=== PATIENT | female | born 1990 | race Two or more races ===

== ENCOUNTER 2020-05-30 15:53 | Outpatient (REF) | payer OTHER, SELFPAY | END 2020-05-30 15:54 | disposition home or self-care (01) | LOC: HO.LAB 15:53 | PROVIDERS: Visit Provider Internal Medicine | DX: Z20.822 Contact with and (suspected) exposure to COVID-19 (principal) | CPT/HCPCS: 36415; C9803; U0003; U0005 ==

== ENCOUNTER 2024-03-18 18:12 | Emergency (ER) | payer OTHER, SELFPAY ==
[2024-03-18 18:18] VITALS: BP 112/44; PULSE 84; RESP 14; TEMP 36.7; O2SAT 98; BMI 24.2
--- NOTE | 2024-03-18 19:49 | ED_ITS ---
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 Patient admits to irrigating eye immediately. Patient is up-to-date on her vaccinations. Unknown medical history patient. Denies other complaints. Related Data Allergies Allergy/AdvReac Type Severity Reaction Status Date / Time No Known Allergies Allergy Verified 03/18/24 18:25 Review of Systems 2 Review of Systems: Yes all other systems are reviewed and are negative Constitutional: Constitutional: Reports as per [facility] Past Medical History Attestation statement: The following information was validated with the patient. Source: old records reviewed Social History Social History Advance Directives: No Advance Directives Information Provided: No Physical Exam 2 Vital Signs: Vital Signs: Last Vital Signs Temp 98.4 F 03/18/24 20:03 Pulse 76 03/18/24 20:03 Resp 16 03/18/24 20:03 BP 118/74 03/18/24 20:03 Pulse Ox 100 03/18/24 20:03 O2 Del Method Room Air 03/18/24 20:03 BMI result Body Mass Index 24.2 Const: General: cooperative, healthy appearing and no acute distress O rientation/consciousness: patient oriented x3 Limitations: no limitations HEENT: Head: Yes normal to inspection and Yes atraumatic Ears: hearing grossly normal bilaterally General nose exam: Normal external nose present Face and sinus: Yes normal facial exam Eyes: General: appearance normal, both eyes and all related structures A lignment and Position: alignment normal Periorbital: periorbital findings normal Eyelids: Yes eyelids normal Conjunctivae: conjunctivae normal P upils: Equal, round and reactive pupils present EOM: EOMs intact bilaterally Neck: Neck: Yes normal visual inspection and Yes no meningeal signs Resp: Effort & Inspection: normal respiratory effort and no respiratory distress Cardio: Rate: regular rate Skin: Rashes: no rashes Wounds: no wounds Neuro: General: patient oriented x3, tone normal and no meningeal signs C ranial nerves: Yes CN's II-XII intact bilaterally and Yes Equal, round and reactive pupils present Gait exam (Neuro): Normal gait present Extrem: General: Yes normal to inspection Course Course Course Narrative: - labs reassuring. Urine negative > discussed with patient post exposure risk & side effects/benefits of PEP. Patient would like to be prescribed/initiate PEP at this time until she can obtain further clarification around drawing patient's labs. - recommended work connection/ID follow-up Results discussed with patient including worrisome signs and symptoms and strict return precautions, and when to return to the emergency department. They verbalized understanding and feel safe for discharge at this time. 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 patient is up-to-date on vaccinations. Will draw labs/titers. Offered PEP kit Patient is speaking with nursing equipment records supervisor about obtaining labs/titers from patient to avoid PEP if possible Please refer to course for remaining clinical decision making, interpretation of labs/imaging results, and discussions with consultants and/or family members. Differential Diagnosis Differential Diagnoses: The differential diagnosis associated with the presentation includes As above Lab Data [facility] Lab Attestation statement: I reviewed the patient's lab results. 03/18/24 19:46 03/18/24 19:46 Labs: Lab Results 03/18/24 Range/Units 19:46 WBC 7.4 (4.8-10.8) X10*3/uL RBC 3.90 L (4.20-5.50) X10*6/uL Hgb 11.9 L (12.0-16.0) g/dl Hct 33.9 L (37.0-47.0) % MCV 86.9 (80.0-98.0) fL MCH 30.5 (27.0-33.0) pg MCHC 35.1 H (31.0-35.0) g/dl RDW 12.0 (11.0-16.0) % Plt Count 248 (160-400) X10*3/uL MPV 10.5 (9.4-12.3) fL Immature Gran % (Auto) 0.3 (0.0-0.4) % Neut % (Auto) 54.6 (45-73) % Lymph % (Auto) 37.2 (20-40) % [place] % (Auto) 6.1 (2-11) % Eos % (Auto) 1.5 (0-4) % Baso % (Auto) 0.3 (0-2) % Lymph # (Auto) 2.8 (1.2-4.9) X10*3/uL [place] # (Auto) 0.5 (0.1-1.2) X10*3/uL Eos # (Auto) 0.1 (0.0-0.4) X10*3/uL Baso # (Auto) 0.0 (0.0-0.2) X10*3/uL Abs Immat Gran (auto) 0.02 (0.00-0.03) X10*3/uL Absolute Neuts (auto) 4.0 (2.0-8.3) x10*3/uL Absolute Nucleated RBC 0.000 (0.0-0.012) X10*3/uL Nucleated RBC % (auto) 0.0 (0.0-0.2) /100WBC Sodium 139 (135-145) mmol/L Potassium 3.4 (3.3-5.1) mmol/L Chloride 104 (96-108) mmol/L Carbon Dioxide 26 (22-29) mmol/L Anion Gap 12 (12-20) BUN 13 (9-16) mg/dL Creatinine 0.59 (0.5-1.4) mg/dL Estim Creat Clear Calc 100.1 Estimated GFR > 60 Random Glucose 96 (60-115) mg/dL Calcium 9.6 (8.4-10.2) mg/dL Total Bilirubin 0.3 (0.0-1.0) mg/dL Direct Bilirubin 0.1 (0.0-0.5) mg/dL AST 22 (5-31) U/L ALT 16 (0-31) U/L Alkaline Phosphatase 52 (39-117) U/L Total Protein 7.3 (6.5-8.0) g/dL Albumin 4.6 (3.5-5.0) g/dL Urine Test NEGATIVE (NEGATIVE) External Record Review External record reviewed: Inpatient record, Office record, Outpatient record, Prior outpatient labs, Prior outpatient radiology, Primary care record and Outside ED record Tests considered The following testing was considered but not selected: As above Prescription Management I considered prescription management with: Antiviral and Antibiotic Social Determinants Patient?s care significantly limited by Social Determinants of Health including: Other Social Determinant of Health Discharge Plan Discharge Clinical Impression: Hx of exposure to hazardous bodily fluids Patient Disposition: Still a Patient Instructions: Body Substance Exposure (ED) Referrals: [facility] [Outside] Hansa Jacobson MD [Primary Care Provider] - Print Language: Luxembourgish
[2024-03-18 19:53] LABS: MANUAL DIFF FLAG NO
[2024-03-18 19:54] LABS: Basophils Percent Auto 0.3 % (0-2); Eosinophils Absolute Auto 0.1 X10*3/uL (0.0-0.4); Eosinophils Percent Auto 1.5 % (0-4); Hematocrit 33.9 % (37.0-47.0); Hemoglobin 11.9 g/dl (12.0-16.0); Imm Gran Abs Auto 0.02 X10*3/uL (0.00-0.03); Imm Gran Pct Auto 0.3 % (0.0-0.4); Lymphocytes Absolute Auto 2.8 X10*3/uL (1.2-4.9); Lymphocytes Percent Auto 37.2 % (20-40); Mean Corpuscular HGB Conc 35.1 g/dl (31.0-35.0); Mean Corpuscular Hemoglobin 30.5 pg (27.0-33.0); Mean Corpuscular Volume 86.9 fL (80.0-98.0); Mean Platelet Volume 10.5 fL (9.4-12.3); Monocytes Absolute Auto 0.5 X10*3/uL (0.1-1.2); Monocytes Percent Auto 6.1 % (2-11); Neutrophils Percent Auto 54.6 % (45-73); Platelet Count 248 X10*3/uL (160-400); White Blood Count 7.4 X10*3/uL (4.8-10.8)
[2024-03-18 19:58] LABS: UPreg QC Valid YES; Urine Pregnancy NEGATIVE (NEGATIVE)
[2024-03-18 20:03] VITALS: BP 118/74; PULSE 76; RESP 16; TEMP 36.9; O2SAT 100
[2024-03-18 20:16] LABS: Alanine Aminotransferase 16 U/L (0-31); Albumin Level 4.6 g/dL (3.5-5.0); Alkaline Phosphatase 52 U/L (39-117); Anion Gap 12 (12-20); Aspartate Amino Transferase 22 U/L (5-31); Bilirubin Direct 0.1 mg/dL (0.0-0.5); Bilirubin Total 0.3 mg/dL (0.0-1.0); Blood Urea Nitrogen 13 mg/dL (9-16); Calcium 9.6 mg/dL (8.4-10.2); Carbon Dioxide 26 mmol/L (22-29); Chloride 104 mmol/L (96-108); Creatinine Clr Calc Pharmacy 100.1; Estimated Glomerular Filt Rate > 60; Glucose Random 96 mg/dL (60-115); Potassium 3.4 mmol/L (3.3-5.1); Sodium 139 mmol/L (135-145); Total Protein 7.3 g/dL (6.5-8.0)
[2024-03-18] MEDS: Post Exposure Medication Kit 1 KIT PO (20:42)
[2024-03-18 20:47] VITALS: BP 118/74; PULSE 76; RESP 16; TEMP 36.9; O2SAT 100
[2024-03-19 03:41] LABS: HBS Num1 415.66 mIU/mL (0-7.99); HBc Num1 0.11 S/CO (0.00-0.79); HIV AB/AG Nonreactive (Nonreactive); HIV Num 1 0.18 S/CO (0.00-0.99); Hepatitis B Core Antibody Nonreactive (Nonreactive); Hepatitis B Surface Antigen Negative (Negative); ~HepC Num1 0.11 S/CO (0.00-0.79); ~Hepatitis B Surface Antibody REACTIVE (Nonreactive); ~Hepatitis C Antibody Nonreactive (Nonreactive)
== END 2024-03-18 20:48 | disposition home or self-care (01) ==
PROVIDERS: Physician Assistant; Emergency Provider Internal Medicine; PCP Internal Medicine
DX: Z04.2 Encounter for examination and observation following work accident (principal); Z77.21 Contact with and (suspected) exposure to potentially hazardous body fluids
CPT/HCPCS: 36415; 80048; 80076; 81025; 85025; 86704; 86706; 86803; 87340; 87389; 99283

== ENCOUNTER → 2024-03-22 09:49 | Outpatient (BNVA) | payer OTHER, SELFPAY | PROVIDERS: PCP Internal Medicine; Visit Provider Physician Assistant Medical | DX: Z13.89 Encounter for screening for other disorder (principal) | CPT/HCPCS: 99202 ==

== ENCOUNTER 2024-03-23 13:27 | Outpatient (AMB) | payer OTHER, SELFPAY ==
--- NOTE | 2024-03-23 14:12 | MHC.OFFVIS ---
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 She had no protective glasses on and received splash of bloody urine to eyes. She is Hepatitis C negative and HIV negative on 03/20. She said she believes source was tested and was negative also. She has reflux and nausea and doesnt want to continue HAART prophylaxis due to low risk. [facility] Medical History (Updated 03/25/24 @ 00:04 by Myrtle Mayer MD) Exposure to blood Review of Systems Const All systems reviewed & are unremarkable except as noted in HPI and below GI Reports dyspepsia and Reports nausea Physical Exam Vital Signs: Last Vital Signs Pulse 83 03/23/24 14:26 Pulse Ox 98 03/23/24 14:26 Oxygen Delivery Method Room Air 03/23/24 14:26 BMI result Body Mass Index 25.4 Const General: cooperative Assessment & Plan Assessment & Plan (1) Exposure to blood: Comment: Low risk and counseled. She doesnt want any further HIV preventive medication at this time (Truvada and Raltegravir). Code(s): Z77.21 - Contact with and (suspected) exposure to potentially hazardous body fluids Category: Medical Plan: No further treatment or testing at this time except patient wishes to be tested again at upcoming physical. Coding Level of Care Code New Pt Level 3 (65398) Diagnoses Exposure to blood Z77.21
[2024-03-23 14:26] VITALS: PULSE 83; O2SAT 98; BMI 25.4
== END 2024-03-23 15:17 | disposition home or self-care (01) ==
PROVIDERS: PCP Internal Medicine; Visit Provider Internal Medicine
DX: Z77.21 Contact with and (suspected) exposure to potentially hazardous body fluids (principal)
CPT/HCPCS: 99203

== ENCOUNTER → 2024-03-23 13:27 | Outpatient (BNVA) | payer OTHER, SELFPAY | PROVIDERS: PCP Internal Medicine; Visit Provider Internal Medicine | DX: Z77.21 Contact with and (suspected) exposure to potentially hazardous body fluids (principal) | CPT/HCPCS: 99202 ==

== ENCOUNTER → 2024-11-22 14:58 | Outpatient (REF) | payer OTHER, SELFPAY ==
--- NOTE | 2024-11-22 15:03 | ECG_ITS ---
Test Reason : qt check Blood Pressure : */* mmHG Vent. Rate : 78 BPM Atrial Rate : 78 BPM P-R Int : 176 ms QRS Dur : 94 ms QT Int : 388 ms P-R-T Axes : 62 26 43 degrees QTcB Int : 442 ms Normal sinus rhythm Normal ECG No previous ECGs available Referred By: Michi Haley Electronically Signed By: LIAT STEINBERG MD
--- OUTSIDE RECORDS SUMMARY | 2024-11-22 15:51 | XMS_ITS | Encounter Summary ---
Author Organization [facility] Address [address] [place] [address] Care Team Providers Care Clam Grower Name Role Phone Danelle Travis MD Primary Care Provider [phone] Reason for Visit * Reason Onset Date Comments Print last physical/vaccines 10/24/2024 Encounter Details Date Type Department Care Team (Late st Contact Info) Description 10/24/2024 Telephone Internal Medicine - [place] [address] [place] [phone] Danelle Travis MD [address] [place] [phone] Print last physical/vaccines Social History Tobacco Use Types Packs/Day Years Used Date Smoking Tobacco: Never Smokeless Tobacco: Never Alcohol Use Standard Drinks/Week Comments Never 0 (1 standard drink = 0.6 oz pur e alcohol) Comments No Sex and Gender Information Value Date Recorded Sex Assigned at Not on file Legal Sex Female 2:35 PM EST Gender Identity Not on file Sexual Orientation Not on file documented as of this encounter Progress Notes * Pooja Perdue MA - 11/08/2024 12:12 PM EDT Pt called questioning Tdap she stated she had it done in May but ist showing it documented? Pls dvise? * Anupama Pascal MA - 10/26/2024 10:02 AM EDT Patient aware. * MANGO Ardon - 10/26/2024 7:52 AM EDT TB blood test ordered. I do not believe we have meningococcal vaccines and I looked at their imm history and did not see it's been done. * Fatuma Vargas MA - 10/25/2024 2:15 PM EDT Patient needs TB test for form. Form is also requesting Meningococcal A and B vaccine, required for school. * Loren Mcarthur - 10/24/2024 2:40 PM EDT Patient now requesting a letter stating she had a complete physical . Note date of physical on letter Contact her once letter is completed Also if our office does PPD if so please schedule * Keara Dumont - 10/24/2024 12:48 PM EDT Patient called and requested a copy of her last physical exam and all of her immunization records and need a TB test done as well. Please advise Cb# [phone] documented in this encounter Plan of Treatment Upcoming Encounters Date Type Department Care Team (Late st Contact Info) Description 12/28/2024 8:20 AM EDT Procedure visit [facility] [address] [place] [phone] Cata Michelle MD [address] [place] [phone] 02/01/2025 11:30 AM EDT Office Visit [facility] [address] [place] [phone] Araceli Pacheco PA [address] [place] [address] documented as of this encounter Visit Diagnoses Diagnosis Screening-pulmonary TB- Primary Screening examination for pulmonary tuberculosis documented in this encounter Care Teams Clam Grower Relationship Specialty Start Date End Date Danelle Travis MD [address] [place] [phone] PCP - General Internal Medicine 02/26/24 documented as of this encounter
--- OUTSIDE RECORDS SUMMARY | 2024-11-22 15:51 | XMS_ITS | Clinical Summary ---
Author Organization [facility] Address [address] [place] [address] Care Team Providers Care Teacher Private Name Role Phone Danelle Travis MD Primary Care Provider [phone] Allergies No known active allergies Medications Medication Sig Dispensed Refills Start Date End Date Status butalbital-acetamino phen-caffeine 50-325-40 MG per tablet TAKE 1 TABLET BY MOUTH EVERY 4 HOURS NEEDED FOR PAIN FOR UP TO 28 DAYS. 20 TABS/30 DAYS 0 04/29/2023 Active vitamin D3 (CHOLECALCIFEROL) 125 MCG (5000 UT) capsule Take 1 capsule (5,000 Units total) by mouth daily. 0 03/31/2023 Active escitalopram (LEXAPRO) tablet 10 mg TAKE 1 AND 1/2 TABLETS DAILY BY MOUTH 0 04/29/2023 Active gabapentin (NEURONTIN) 100 MG capsule TAKE 1 CAPSULE BY MOUTH AT BEDTIME FOR FIRST WEEK, THEN 2 CAPSULES AT BEDTIME 0 04/29/2023 Active galcanezumab-gnlm (Emgality) 120 MG/ML injection Inject 2 mL (240 mg total) under the skin every 28 days. 1 mL 3 08/03/2023 Active Ubrogepant (Ubrelvy) 100 MG TABS Take 100 mg by mouth 2 (two) times a day as needed. Take one tablet as needed for headaches, may repeat in 2 hours, do not exceed more than 2 per day 30 tablet 3 10/30/2023 Active Social History Tobacco Use Types Packs/Day Years Used Date Smoking Tobacco: Never Smokeless Tobacco: Never Tobacco Cessation:Counseling Given: Not Answered Alcohol Use Standard Drinks/Week Comments Never 0 (1 standard drink = 0.6 oz pur e alcohol) Sex and Gender Information Value Date Recorded Sex Assigned at Female 04/01/2023 11:49 AM EST Gender Identity Not on file Sexual Orientation Not on file Job Start Date Occupation Industry Not on file Not on file Not on file Last Filed Vital Signs Vital Sign Reading Time Taken Comments Blood Pressure 101/67 10/30/2023 1:57 PM EDT Pulse 92 10/30/2023 1:57 PM EDT Temperature 36.3 C (97.3 F) 08/03/2023 2:37 PM EDT Respiratory Rate - - Oxygen Saturation 98% 10/30/2023 1:57 PM EDT Inhaled Oxygen Concentration - - Weight 52.3 kg (115 lb 3.2 oz) 10/30/2023 1:57 P M EDT Height 149.9 cm (4' 11 ) 08/03/2023 2:37 PM EDT Body Mass Index 23.27 08/03/2023 2:37 PM EDT Plan of Treatment Health Maintenance Due Date Last Done Comments Hepatitis C Screening 1988 Depression Screening 2000 BMI Counseling 2006 Preventative Health Evaluation 2006 Cervical Cancer Screening (Pap Smear) 2009 DTap / Tdap / Td (2 - Td or Tdap) 10/08/2022 10/08/2012 COVID-19 Vaccine (2023-2 5 season) 2023 03/05/2021, 06/11/2020, 05/21/2020 Influenza Vaccine (#1) 2024 Hepatitis B Vaccines Completed 06/08/2015, 12/29/2014, 11/28/2014 Pneumococcal Vaccine Aged Out No long er eligible based on patient's age to complete this topic RSV Ped < 20 months Aged Out No longe r eligible based on patient's age to complete this topic Care Teams Teacher Private Relationship Specialty Start Date End Date Danelle Travis MD [address] [place] [phone] PCP - General Internal Medicine 11/20/22
== END ==
LOC: HO.CARD 14:58
PROVIDERS: PCP Internal Medicine; Visit Provider Psychiatry & Neurology Child & Adolescent Psychiatry
DX: F41.1 Generalized anxiety disorder (principal)
CPT/HCPCS: 93005

== ENCOUNTER → 2024-11-22 15:03 | Outpatient (BNV) | payer OTHER, SELFPAY | PROVIDERS: PCP Internal Medicine; Visit Provider Internal Medicine Cardiovascular Disease | DX: Z13.6 Encounter for screening for cardiovascular disorders (principal) | CPT/HCPCS: 93010 ==